=== PATIENT | male | born 1990 | race African-American/Black ===

== ENCOUNTER 2018-07-30 17:57 | Emergency (ER) | payer OTHER ==
[~2018-07-30] VITALS: Ht 185.4 cm; Wt 83.9 kg
[2018-07-30 18:11] VITALS: BP 134/75
[2018-07-30] MEDS ORDERED: CEPHALEXIN MONOHYDRATE 500 MG CAPSULE PO ONE ×2 (18:30→18:37)
[2018-07-30] MEDS ORDERED: SULFAMETH/TRIMETH 800/160 MG 1 UDTAB TABLET PO ONE ×2 (18:30→18:38)
== END 2018-07-30 18:49 ==
LOC: ER 18:10
DX: L03.114 Cellulitis of left upper limb (principal)
CPT/HCPCS: A4606; Z7610